=== PATIENT | female | born 1940 | race African-American/Black ===

== ENCOUNTER 2018-07-13 17:49 | Inpatient (IN) | payer BC, OTHER ==
[~2018-07-13] VITALS: Ht 160 cm; Wt 61.7 kg
[~2018-07-13 17:49] MED LIST: ASPI-1153 PO; ATEN50TA PO; GLIP10TA11 PO; LISI-221 PO; NOR10 PO; PIOG30TA71 PO; PRO40 PO; SIMV20TA2 PO; SITA1TAB10 PO
[2018-07-13 17:53] VITALS: BP_SYST 203
[2018-07-13] MEDS ORDERED: NITROGLYCERIN 0.4 MG TAB.SUBL SL ONE ×2 (18:15→21:30)
[2018-07-13 19:00] LABS: BASOPHILS % (AUTO) 0.5 % (0.0-2.0); EOSINOPHILS # (AUTO) 0.1 K/uL (0.0-0.4); HEMATOCRIT 41.4 % (36-48); HEMOGLOBIN 13.8 g/dL (12.0-16.0); LYMPHOCYTES % (AUTO) 23.4 % (20.5-51.5); MEAN CORPUSCULAR HEMOGLOBIN 30 pg (27-31); MEAN CORPUSCULAR HGB CONC 33 % (32-36); MEAN CORPUSCULAR VOLUME 90 fL (79.0-98.0); MONOCYTES # (AUTO) 0.8 K/uL (0.0-1.0); MONOCYTES % (AUTO) 9.6 % (1.7-9.3); NEUTROPHILS # (AUTO) 5.9 K/uL (1.8-7.7); NEUTROPHILS % (AUTO) 65.5 % (40.0-70.0); PLATELET COUNT (AUTO) 370 K/uL (130-430); RED BLOOD CELL COUNT(AUTO) 4.59 MIL/uL (4.2-6.2); RED CELL DISTRIBUTION WIDTH 12.4 % (9.0-15.0); WHITE BLOOD COUNT (AUTO) 8.8 K/uL (4.8-10.8)
[2018-07-13 19:34] LABS: PROTHROMBIN TIME 10.2 SECS (9.5-12.5)
[2018-07-13 19:41] LABS: ANION GAP 11 (5-15); CALCIUM 9.6 mg/dL (8.4-11.0); CHLORIDE 91 mmol/L (98-107); CREATININE 1.33 mg/dL (0.55-1.30); GLUCOSE 203 mg/dL (70-99); POTASSIUM 3.3 mmol/L (3.5-5.1); SODIUM SERUM 128 mmol/L (136-145); UREA NITROGEN, BLOOD 16 mg/dL (8-21)
[2018-07-13 19:46] LABS: ALANINE AMINOTRANSFERASE 20 U/L (12-78); ALBUMIN 4.2 g/dL (3.4-4.8); ASPARTATE AMINOTRANSFERASE 21 U/L (10-37); TOTAL BILIRUBIN 0.6 mg/dL (0.0-1.0)
[2018-07-13] MEDS ORDERED: GABA-529 PO (20:36)
[2018-07-13] MEDS ORDERED: VITD400 PO (21:16)
[2018-07-13] MEDS ORDERED: NITROGLYCERIN 1 INCH (GM) OINT. TP ONE (21:30)
[2018-07-14 01:57] VITALS: BP_SYST 163
[2018-07-14 08:00] VITALS: BP_SYST 167
[2018-07-14] MEDS ORDERED: cloNIDine HCL 0.1 MG TABLET PO PRN (09:15)
[2018-07-14] MEDS ORDERED: ATENOLOL 50 MG TABLET (TENORMIN) PO ONE (09:15)
[2018-07-14] MEDS ORDERED: hydrALAZINE HCL 20 MG/ML VIAL IVP PRN (09:15)
[2018-07-14] MEDS ORDERED: amLODIPine BESYLATE 10 MG TABLET PO ONE (09:15)
[2018-07-14] MEDS ORDERED: DEXTROSE 50% JECT 50 ML DISP.SYRIN IVP PRN (09:15)
[2018-07-14] MEDS ORDERED: ASPIRIN 81 MG TABLET(ECOTRIN) PO ONE (09:15)
[2018-07-14] MEDS ORDERED: NON-FORMULARY MEDICATION (Lisinopril/Hctz* (LISINOPRIL-HCTZ 20-25 Mg Tab*) 1 TAB) PO ONE (09:15)
[2018-07-14] MEDS ORDERED: ENALAPRILAT DIHYDRATE 1.25 MG/ML VIAL IVP PRN (09:15)
[2018-07-14] MEDS: HYDROCHLOROTHIAZIDE 25 MG TABLET (HCTZ) PO SCH (10:20)
[2018-07-14] MEDS: LISINOPRIL 20 MG TABLET PO SCH (10:21)
[2018-07-14] MEDS ORDERED: LISINOPRIL 20 MG TABLET PO ONE (10:30)
[2018-07-14] MEDS ORDERED: HYDROCHLOROTHIAZIDE 25 MG TABLET (HCTZ) PO ONE (10:30)
[2018-07-14] MEDS: INSULIN REGULAR, HUMAN 100 UNITS/ML, 10 ML VIAL (novoLIN R) SUBCUT PRN ×2 (12:05→17:31)
[2018-07-14 12:39] VITALS: BP_SYST 162
[2018-07-14 13:16] VITALS: BP_SYST 121
[2018-07-14 16:30] VITALS: BP_SYST 132
[2018-07-14 20:00] VITALS: BP_SYST 135
[2018-07-14] MEDS ORDERED: SIMVASTATIN 20 MG TABLET PO SCH (21:00)
[2018-07-14] MEDS ORDERED: METFORMIN HCL PO SCH (21:00)
[2018-07-14] MEDS ORDERED: SITAGLIPTIN PHOS PO SCH (21:00)
[2018-07-14] MEDS ORDERED: [UNRECOGNIZED DRUG - OTHER] PO SCH (21:00)
[2018-07-14] MEDS: ATENOLOL 50 MG TABLET (TENORMIN) PO SCH (21:58)
[2018-07-15 00:03] VITALS: BP_SYST 139
[2018-07-15] MEDS ORDERED: PANTOPRAZOLE SODIUM 40 MG TAB PO SCH (06:00)
[2018-07-15] MEDS: INSULIN REGULAR, HUMAN 100 UNITS/ML, 10 ML VIAL (novoLIN R) SUBCUT PRN ×3 (06:26→17:30)
[2018-07-15 08:15] VITALS: BP_SYST 184
[2018-07-15] MEDS ORDERED: amLODIPine BESYLATE 10 MG TABLET PO SCH (09:00)
[2018-07-15] MEDS ORDERED: ASPIRIN 81 MG TABLET(ECOTRIN) PO SCH (09:00)
[2018-07-15] MEDS ORDERED: REGADENOSON 0.4 MG/5 ML SYRINGE IVP ONE (09:00)
[2018-07-15] MEDS: HYDROCHLOROTHIAZIDE 25 MG TABLET (HCTZ) PO SCH (09:54)
[2018-07-15] MEDS: LISINOPRIL 20 MG TABLET PO SCH (09:54)
[2018-07-15] MEDS: ATENOLOL 50 MG TABLET (TENORMIN) PO SCH (09:54)
[2018-07-15 12:08] VITALS: BP_SYST 154
[2018-07-15 15:29] VITALS: BP_SYST 154
[2018-07-15 16:43] VITALS: BP_SYST 154
[2018-07-16] MEDS ORDERED: ATORVASTATIN 10 MG TABLET PO SCH (09:00)
== END 2018-07-15 18:20 | disposition home or self-care (01) | DRG 313 ==
LOC: SED 17:49 → STU 23:18
PROVIDERS: ADMIT Internal Medicine Hospice and Palliative Medicine; ATTEND Internal Medicine Hospice and Palliative Medicine
DX: R07.89 Other chest pain (principal); E87.1 Hypo-osmolality and hyponatremia; K21.9 Gastro-esophageal reflux disease without esophagitis; E11.9 Type 2 diabetes mellitus without complications; E78.5 Hyperlipidemia, unspecified; I10 Essential (primary) hypertension; Z79.82 Long term (current) use of aspirin; Z79.899 Other long term (current) drug therapy
CPT/HCPCS: 36415; 71045; 80053; 82550-TC; 82962; 83880; 84484; 85025; 85610-TC; 85730-TC; 93005; 93017; 93306; 99285; A9500; G0378; J1815; J2785